=== PATIENT | male | born 1940 | race Caucasian/White ===

== ENCOUNTER 2023-03-19 08:02 | Day surgery (SDC) | payer MEDICARE, SELFPAY ==
--- NOTE | 2023-03-19 06:41 | W.ANESPRE ---
General Info Date of Service Date Performed: 03/19/23 Height: 5 ft 8 in Weight: 86.183 kg Body Mass Index (BMI): 28.8 Surgical Procedure: Operation Date: 03/19/23 09:55 Proposed Procedure Side Surgeon p Cataract Extraction with IOL Implant Left Mina Harrington MD Meds Allergies and Home Medications Allergies Allergy/AdvReac Type Severity Reaction Status Date / Time No Known Allergies Allergy Unverified 03/19/23 08:36 Home Medication Medication Instructions Recorded bisoprolol fumarate 5 mg tablet 5 mg PO HS 03/18/23 bupropion HCl 150 mg 24 hr tablet, 150 mg PO DAILY 03/18/23 extended release finasteride 5 mg tablet 5 mg PO DAILY 03/18/23 folic acid 1 mg tablet 1 mg PO DAILY 03/18/23 sertraline 100 mg tablet 100 mg PO BID 03/18/23 tamsulosin 0.4 mg capsule 0.8 mg PO DAILY 03/18/23 multivitamin 1 tab PO DAILY 03/19/23 Current Visit Medications: Current Medications Generic Name Dose Route Start Last Admin Trade Name Freq PRN Reason Stop Dose Admin Acetaminophen 1,000 mg 03/19/23 06:00 Acetaminophen 500 Mg Tab PO 04/18/23 05:59 Q4H PRN PRN Balanced Salt Solution 500 ml 03/19/23 06:00 Balanced Salt Soln.-Plus 500 Ml Bag OP 04/18/23 05:59 [facility] Miscellaneous Medication 0 ml 03/19/23 06:00 Prednisolone 1%, Moxifloxacin 0.5%, Nepafenac 0.1% 5ml Btl OS 04/18/23 05:59 DIRECTED [facility] Miscellaneous Medication 0 ml 03/19/23 06:00 Tropicam./Phenyleph. (1/2.5%) 5 Ml Btl OS 04/18/23 05:59 DIRECTED [facility] Tetracaine HCl 0 ml 03/19/23 06:00 Tetracaine 0.5% 4 Ml Btl OS 04/18/23 05:59 DIRECTED [facility] PFSH Active Problems Active Problems: Problem Status Onset Code Posterior subcapsular age-related cataract of left eye H25.042 Nuclear age-related cataract, left eye H25.12 Medical History Medical History Anemia Atrioventricular block, complete F/U with Dr. Ramos every 6 months BPH w/o urinary obs/LUTS Depression Essential hypertension HLD (hyperlipidemia) MACRINA (obstructive sleep apnea) Pacemaker Surgical History Surgical History (Updated 03/19/23 @ 08:35 by Mary Rocha RN) Hx of total knee arthroplasty LEFT Hx of total knee arthroplasty RIGHT Tobacco Smoking/Tobacco Use Status: Never Alcohol Alcohol Intake: never Substance Use Substance use type: does not use Vital Signs and Lab Results Vital Signs Most Recent Vital Signs in EMR: Temp Pulse Resp BP Pulse Ox 36.2 C L 62 16 153/93 H 96 03/19/23 08:19 03/19/23 08:19 03/19/23 08:19 03/19/23 08:19 03/19/23 08:19 Lab Results Blood Type / Crossmatch: No Data to Display Complete Blood Count: No Data to Display Complete Metabolic Panel: No Data to Display Liver Function Panel: No Data to Display Coagulation Panel: No Data to Display Cardiac Panel: No Data to Display Arterial Blood Gas: No Data to Display Venous Blood Gas: No Data to Display Pancreas Panel: No Data to Display Thyroid Panel: No Data to Display Infectious Disease: No Data to Display Blood Cultures: No Data to Display Toxicology Panel: No Data to Display Anesthesia Assessment and Plan Anesthesia History Personal History: No History of Anesthesia Complications Family History: No Family History of Anesthesia Complications Exercise Tolerance Exercise Tolerance: Metabolic Equivalents>4 Pertinent Negatives Pertinent Negatives: No Symptoms of GERD, No Major Pulmonary Symptoms or Complaints and No History of CVA/TIA Cardiac & Pulmonary Exam Cardiac Exam: Normal S1/S2 Heart Sounds Pulmonary Exam: Clear Bilateral Breath Sounds Implantable Cardiac Device Does patient have a Pacemaker or an ICD?: Yes Device 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
[2023-03-19 08:19] VITALS: BP 153/93; PULSE 62; RESP 16; TEMP 36.2; O2SAT 96
[2023-03-19] MEDS: Tropicam./Phenyleph. (1/2.5%) 5 ML BTL OS ×3 (08:27→08:48)
[2023-03-19 08:49] VITALS: BMI 28.8
[2023-03-19] MEDS: Balanced Salt Soln.-PLUS 500 ML BAG OP (09:21)
[2023-03-19] MEDS: Tetracaine 0.5% 4 ML BTL OS (09:22)
[2023-03-19] MEDS: Lidocaine 1% Pres-Free 5 ML VIAL (09:23)
[2023-03-19] MEDS: Phenylephrine/Lidocaine (15/10) MG/ML 1 ML VIAL (09:24)
[2023-03-19] MEDS: Duovisc Viscoelastic System EACH 1 EACH (09:24)
[2023-03-19] MEDS: Povidone-Iodine Ophth 30 ML BTL (09:25)
[2023-03-19 09:31] VITALS: BP 150/81; PULSE 60; RESP 18; TEMP 36.4; O2SAT 98
--- NOTE | 2023-03-19 09:31 | W.PM.DSUDISC ---
Date of service: 03/19/23 Time of Service: 09:32 Discharge Plan Disposition Patient Disposition: Home Discharge Details Attending Provider: Mina Harrington Primary Care Provider: Alissa Rossi Home Meds and New Rx's Prescriptions: No Action sertraline 100 mg tablet 100 mg PO BID Patient Comments: TAKE ONE TABLET BY MOUTH TWICE A DAY bisoprolol fumarate 5 mg tablet 5 mg PO HS Patient Comments: TAKE ONE TABLET BY MOUTH EVERY DAY tamsulosin 0.4 mg capsule 0.8 mg PO DAILY Patient Comments: TAKE TWO CAPSULES BY MOUTH EVERY DAY folic acid 1 mg tablet 1 mg PO DAILY Patient Comments: TAKE ONE TABLET BY MOUTH EVERY DAY finasteride 5 mg tablet 5 mg PO DAILY Patient Comments: TAKE ONE TABLET BY MOUTH EVERY DAY bupropion HCl 150 mg tablet extended release 24 hr 150 mg PO DAILY Patient Comments: TAKE ONE TABLET BY MOUTH EVERY DAY multivitamin [Multi-Vitamin] Tablet 1 tab PO DAILY Discharge Instructions Stand Alone Forms: Post-op Topical Cataract, Kenyon Perez ([facility]) Discharge Orders Discharge Orders: Discharge Order (Routine); Ordered 03/19/23 Ordered By: Mina Harrington DS: Diagnosis Discharge Diagnosis (1) Nuclear age-related cataract, left eye: Status: Resolved (2) Posterior subcapsular age-related cataract of left eye: Status: Resolved
--- NOTE | 2023-03-19 09:32 | ROE_ITS ---
Date of service: 03/19/23 Time of Service: 09:32 Operative Note Operative Note DATE OF PROCEDURE: 03/19/23 PRE-OP DIAGNOSIS: Nuclear/posterior subcapsular cataract, left eye POST-OP DIAGNOSIS: same PROCEDURE: Cataract extraction using phacoemulsification with intraocular lens implant, left eye SURGEON: Mina Harrington ANESTHESIA TYPE: Local By Surgeon and MAC Refer to Anesthesia Record PATHOLOGY: none sent COMPLICATIONS: None Patient was transported to: same day Patient's condition: stable Implants: Duncan and Duncan Tecnis Eyhance [id number] Indications: Progressive decreased vision due to cataract, left eye Procedure Description: CATARACT SURGERY OPERATIVE REPORT PREOPERATIVE DIAGNOSIS: 1. Nuclear/posterior subcapsular cataract, left eye POSTOPERATIVE DIAGNOSIS: Same OPERATION: 1. Cataract extraction using phacoemulsification with posterior chamber intraocular lens implant, left eye. IOL: IOL Dumpling Machine Operator/Model: Duncan & Duncan Tecnis Eyhance DIB00 IOL Power: + 24.0 diopters IOL Serial Number: [id number] Optic Diameter: 6.0 mm Haptic/Overall Diameter: 13.0 mm PHACO INFO: Dionte Convergent Dentalurion Vision System with OZil and Active Fluidics Cumulative Dispersed Energy (CDE): 11.51 seconds SURGEON: Mina Harrington MD, YESSI ANESTHESIA: Monitored A [facility] (MAC), with local sub-tenon's anesthetic infiltration COMPLICATIONS: None SPECIMENS: None INDICATIONS FOR PROCEDURE: The patient is an 82-year-old male with history of diminished visual acuity in his left eye secondary to the development of significant nuclear/posterior subcapsular cataract. He is significantly symptomatic that he desires cataract surgery and attempt to improve and maximize his vision. The option of cataract surgery was offered to the patient and he wished to proceed. See office notes for detailed information. PROCEDURE: The correct surgical eye was identified and marked as the left eye and the pupil was dilated in the preoperative area using mydriatics and cycloplegics. The dilated pupil size was 5.0 mm. The patient elected to proceed without oral sedation. The patient was brought to the operating room where cardiopulmonary monitoring was instituted and surgical time-out was performed, confirming the correct operative eye and IOL power. Topical anesthesia was administered and ophthalmic povidone-iodine 5% was instilled into the conjunctival fornices. The liudmila-ocular area was prepped with Betadine 10% solution and draped in the usual sterile fashion for intraocular surgery, including an aperture drape. A Tegaderm transparent film dressing was cut in half and used to cover the lashes and lid margins. Care was taken to sequester the lashes and lid margins under the Tegaderm dressing. A lid speculum was placed between the lids of the operative eye and the Dionte LuxOR Re valia operating microscope was maneuvered into position. Justus scissors were then used to make a conjunctival buttonhole approximately 6mm posterior to the limbus in the inferonasal quadrant. Blunt dissection was carried out to expose bare sclera, and a blunt-tipped sub-tenon?s anesthesia cannula was introduced and passed posteriorly along the globe where non- preserved plain lidocaine was injected into posterior sub-Tenon?s space. A sideport knife was used to make a paracentesis port. Intraocular phenylephrine/lidocaine was injected into the anterior chamber.. The anterior chamber was filled with viscoelastic. A keratome knife was used to construct a 2-plane near-clear corneal tunnel extending 2.0mm into clear cornea. A flap was raised on the anterior capsule and capsulorhexis forceps were used to complete a continuous curvilinear capsulorhexis of 5.0 mm. Balanced salt solution was then used to perform cortical cleaving hydrodissection and nuclear hydrodelineation until the lens could be freely rotated within the capsular bag. The lens nucleus was then disassembled and removed within the capsular bag and iris plane using phacoemulsification. Residual cortical material was removed using the irrigation/aspiration handpiece. The posterior capsule was carefully polished to remove as much residual lens epithelial cells as safely possible. The capsular bag was then inflated and the anterior chamber deepened with viscoelastic. The lens implant described above was inserted into the capsular bag using the Duncan and Duncan Simplicity pre-loaded injector. A Kuglen hook was used to dial the IOL into position. Residual viscoelastic was then removed first from posterior to the IOL, then from the anterior chamber using the I/A handpiece. The lens implant was noted to center nicely within the capsular bag. The incisions were stromally hydrated, and the anterior chamber was reformed using BSS. Then 0.5cc of moxifloxacin 1.0mg/ml were injected into the capsular bag and anterior chamber. The incisions were checked with a Weck spear and found to be secure. Several drops of ophthalmic povidone-iodine 5% were then applied to the eye followed by two drops of Imprimis combination prednisolone/moxifloxacin/nepafenac solution. The drapes were removed and a clear plastic protective eye shield was placed over the eye. The patient was then returned to Same Day Surgery in stable condition.
--- NOTE | 2023-03-19 09:50 | W.ANESPOSTOP ---
Postoperative Evaluation Date, Time and Location Date Performed: 03/19/23 Time Performed: 09:50 Patient Location: Day Surgery Unit Vital Signs Most Recent Imported Vital Signs: Most Recent Vital Signs Temp Pulse Resp BP Pulse Ox 36.4 C L 60 18 150/81 H 98 03/19/23 09:31 03/19/23 09:31 03/19/23 09:31 03/19/23 09:31 03/19/23 09:31 Pain Score Most Recent Pain Score: Most Recent Pain Score Pain Level 0 03/19/23 09:31 Assessment Mental Status: Awake (Alert & Oriented to Patient Baseline) Airway and Respiratory Function: Patent airway with normal (patient baseline) respiratory exam Cardiovascular Function: Hemodynamically Stable Hydration Status: Adequately Hydrated Nausea & Vomiting: No Nausea or Vomiting Pain: Pt. Denies Any Pain Peripheral Nerve Block: Other (Local by Dr. Harrington)
== END 2023-03-19 09:58 | disposition home or self-care (01) ==
PROVIDERS: PCP Internal Medicine; Visit Provider Ophthalmology
PROC: (CPT 66984; principal; 2023-03-19 09:45)
DX: H25.12 Age-related nuclear cataract, left eye (principal); H25.042 Posterior subcapsular polar age-related cataract, left eye; F32.A Depression, unspecified; I10 Essential (primary) hypertension
CPT/HCPCS: 66984; V2632

== ENCOUNTER 2023-04-02 07:10 | Day surgery (SDC) | payer MEDICARE, SELFPAY ==
[2023-04-02 07:48] VITALS: BP 147/88; PULSE 55; RESP 16; TEMP 36.3; O2SAT 97
[2023-04-02] MEDS: Tropicam./Phenyleph. (1/2.5%) 5 ML BTL OD ×2 (07:58→08:03)
--- NOTE | 2023-04-02 08:13 | ANES.PREOP_ITS ---
General Info Date of Service Date Performed: 04/02/23 Height: 5 ft 8 in Weight: 84.6 kg Body Mass Index (BMI): 28.3 Surgical Procedure: Operation Date: 04/02/23 09:10 Proposed Procedure Side Surgeon p Cataract Extraction with IOL Implant Right Mina Harrington MD Meds Allergies and Home Medications Allergies Allergy/AdvReac Type Severity Reaction Status Date / Time No Known Allergies Allergy Verified 04/02/23 07:44 Home Medication Medication Instructions Recorded bisoprolol fumarate 5 mg tablet 5 mg PO HS 03/18/23 bupropion HCl 150 mg 24 hr tablet, 150 mg PO DAILY 03/18/23 extended release finasteride 5 mg tablet 5 mg PO DAILY 03/18/23 folic acid 1 mg tablet 1 mg PO DAILY 03/18/23 sertraline 100 mg tablet 100 mg PO BID 03/18/23 tamsulosin 0.4 mg capsule 0.8 mg PO DAILY 03/18/23 multivitamin 1 tab PO DAILY 03/19/23 Current Visit Medications: Current Medications Generic Name Dose Route Start Last Admin Trade Name Freq PRN Reason Stop Dose Admin Acetaminophen 1,000 mg 04/02/23 06:00 Acetaminophen 500 Mg Tab PO 05/02/23 05:59 Q4H PRN PRN Balanced Salt Solution 500 ml 04/02/23 06:00 Balanced Salt Soln.-Plus 500 Ml Bag OP 05/02/23 05:59 DIRECTED [facility] Miscellaneous Medication 0 ml 04/02/23 06:00 Prednisolone 1%, Moxifloxacin 0.5%, Nepafenac 0.1% 5ml Btl OD 05/02/23 05:59 DIRECTED [facility] Miscellaneous Medication 0 ml 04/02/23 06:00 04/02/23 08:03 Tropicam./Phenyleph. (1/2.5%) 5 Ml Btl OD 05/02/23 05:59 1 drp DIRECTED [facility] Administration Tetracaine HCl 0 ml 04/02/23 06:00 Tetracaine 0.5% 4 Ml Btl OD 05/02/23 05:59 DIRECTED [facility] PFSH Active Problems Active Problems: Problem Status Onset Code Posterior subcapsular age-related cataract, right eye H25.041 Nuclear age-related cataract, right eye H25.11 Nuclear age-related cataract, left eye H25.12 Posterior subcapsular age-related cataract of left eye H25.042 Medical History Medical History Anemia Atrioventricular block, complete F/U with Dr. Ramos every 6 months BPH w/o urinary obs/LUTS Depression Essential hypertension HLD (hyperlipidemia) MACRINA (obstructive sleep apnea) Pacemaker Surgical History Surgical History Hx of total knee arthroplasty LEFT Hx of total knee arthroplasty RIGHT Tobacco Smoking/Tobacco Use Status: Never Alcohol Alcohol Intake: never Substance Use Substance use: Never Substance use type: does not use Vital Signs and Lab Results Vital Signs Most Recent Vital Signs in EMR: Most Recent Vital Signs Temp Pulse Resp BP Pulse Ox 36.3 C L 55 L 16 147/88 H 97 04/02/23 07:48 04/02/23 07:48 04/02/23 07:48 04/02/23 07:48 04/02/23 07:48 Lab Results Blood Type / Crossmatch: No Data to Display Complete Blood Count: No Data to Display Complete Metabolic Panel: No Data to Display Liver Function Panel: No Data to Display Coagulation Panel: No Data to Display Cardiac Panel: No Data to Display Arterial Blood Gas: No Data to Display Venous Blood Gas: No Data to Display Pancreas Panel: No Data to Display Thyroid Panel: No Data to Display Infectious Disease: No Data to Display Blood Cultures: No Data to Display Toxicology Panel: No Data to Display Anesthesia Assessment and Plan Anesthesia History Personal History: No History of Anesthesia Complications Family History: No Family History of Anesthesia Complications Exercise Tolerance Exercise Tolerance: Metabolic Equivalents>4 Pertinent Negatives Pertinent Negatives: No Symptoms of GERD and No Major Pulmonary Symptoms or Complaints Cardiac & Pulmonary Exam Cardiac Exam: Normal S1/S2 Heart Sounds Pulmonary Exam: Clear Bilateral Breath Sounds Implantable Cardiac Device Does patient have a Pacemaker or an ICD?: Yes Device 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[facility] Accolade MRI L311 Reason for Placement:: AV Block Date of Last Device Interrogation:: 01/26/23 Airway Exam Known Difficult Airway: No Mallampati Class: 2 Mouth Opening: Normal (> 3cm) Thyromental Distance: Greater than 3 cm Neck Range of Motion: Full ROM Neck Circumference: Normal Teeth Condition: Normal Dentition ASA Classification ASA Score: ASA 3 Emergency Case?: No NPO Status NPO Status: NPO Clears >2 hours, Solids >8 hours Anesthesia Plan Resuscitation Status: Full Code Anesthesia Technique: MAC Anesthesia Airway Planned: Natural Airway Monitors Used: Standard Monitors
[2023-04-02 08:44] VITALS: BMI 28.3
[2023-04-02] MEDS: Tetracaine 0.5% 4 ML BTL OD (08:47)
[2023-04-02] MEDS: Lidocaine 1% Pres-Free 5 ML VIAL (08:49)
[2023-04-02] MEDS: Phenylephrine/Lidocaine (15/10) MG/ML 1 ML VIAL (08:49)
[2023-04-02] MEDS: Balanced Salt Soln.-PLUS 500 ML BAG OP (08:49)
[2023-04-02] MEDS: Duovisc Viscoelastic System EACH 1 EACH (08:49)
[2023-04-02] MEDS: Povidone-Iodine Ophth 30 ML BTL (08:49)
[2023-04-02 09:15] VITALS: BP 141/86; PULSE 75; RESP 18; TEMP 36.4; O2SAT 97
--- NOTE | 2023-04-02 09:16 | W.PM.DSUDISC ---
Date of service: 04/02/23 Time of Service: 09:16 Discharge Plan Disposition Patient Disposition: Home Discharge Details Attending Provider: Mina Harrington Primary Care Provider: Alissa Rossi Home Meds and New Rx's Prescriptions: No Action sertraline 100 mg tablet 100 mg PO BID Patient Comments: TAKE ONE TABLET BY MOUTH TWICE A DAY bisoprolol fumarate 5 mg tablet 5 mg PO HS Patient Comments: TAKE ONE TABLET BY MOUTH EVERY DAY tamsulosin 0.4 mg capsule 0.8 mg PO DAILY Patient Comments: TAKE TWO CAPSULES BY MOUTH EVERY DAY folic acid 1 mg tablet 1 mg PO DAILY Patient Comments: TAKE ONE TABLET BY MOUTH EVERY DAY finasteride 5 mg tablet 5 mg PO DAILY Patient Comments: TAKE ONE TABLET BY MOUTH EVERY DAY bupropion HCl 150 mg tablet extended release 24 hr 150 mg PO DAILY Patient Comments: TAKE ONE TABLET BY MOUTH EVERY DAY multivitamin [Multi-Vitamin] Tablet 1 tab PO DAILY Discharge Instructions Stand Alone Forms: Post-op Topical Cataract, Kenyon Perez ([facility]) Discharge Orders Discharge Orders: Discharge Order (Routine); Ordered 04/02/23 Ordered By: Mina Harrington DS: Diagnosis Discharge Diagnosis (1) Posterior subcapsular age-related cataract, right eye: Status: Resolved (2) Nuclear age-related cataract, right eye: Status: Resolved
--- NOTE | 2023-04-02 09:17 | ROE_ITS ---
Date of service: 04/02/23 Time of Service: 09:17 Operative Note Operative Note DATE OF PROCEDURE: 04/02/23 PRE-OP DIAGNOSIS: Nuclear/posterior subcapsular cataract, right eye POST-OP DIAGNOSIS: same PROCEDURE: Cataract extraction using phacoemulsification with intraocular lens implant, right eye SURGEON: Mina Harrington ANESTHESIA TYPE: Local By Surgeon and MAC Refer to Anesthesia Record ESTIMATED BLOOD LOSS: 0 PATHOLOGY: none sent COMPLICATIONS: None Patient was transported to: same day Patient's condition: stable Implants: Duncan & Duncan Tecnis Eyhance [id number] Indications: Progressive visual loss due to cataract, right eye Procedure Description: CATARACT SURGERY OPERATIVE REPORT PREOPERATIVE DIAGNOSIS: 1. Nuclear/posterior subcapsular cataract, right eye POSTOPERATIVE DIAGNOSIS: Same OPERATION: 1. Cataract extraction using phacoemulsification with posterior chamber intraocular lens implant, right eye. IOL: IOL Monotype Keyboard Operator/Model: Duncan & Duncan Tecnis Eyhance DIB00 IOL Power: + 23.5 diopters IOL Serial Number: [id number] Optic Diameter: 6.0mm Haptic/Overall Diameter: 13.0mm PHACO INFO: Dionte Solar Junctionurion Vision System with OZil and Active Fluidics Cumulative Dispersed Energy (CDE): 9.38 seconds SURGEON: Mina Harrington MD, YESSI ANESTHESIA: Monitored [facility] ([facility]), with local sub-tenon's anesthetic infiltration COMPLICATIONS: None SPECIMENS: None INDICATIONS FOR PROCEDURE: The patient is an 82-year-old gentleman with history of diminished visual acuity in both eyes secondary to the development of bilateral cataract. He has already undergone cataract surgery in the left eye and is doing well postoperatively. He now presents for cataract surgery in the right eye. See office notes for detailed information. PROCEDURE: The correct surgical eye was identified and marked as the right eye and the pupil was dilated in the preoperative area using mydriatics and cycloplegics. The dilated pupil size was 5.5 mm. . The patient elected to proceed without oral sedation. The patient was brought to the operating room where cardiopulmonary monitoring was instituted and surgical time-out was performed, confirming the correct operative eye and IOL power. Topical anesthesia was administered and ophthalmic povidone-iodine 5% was instilled into the conjunctival fornices. The liudmila-ocular area was prepped with Betadine 10% solution and draped in the usual sterile fashion for intraocular surgery, including an aperture drape. A Tegaderm transparent film dressing was cut in half and used to cover the lashes and lid margins. Care was taken to sequester the lashes and lid margins under the Tegaderm dressing. A lid speculum was placed between the lids of the operative eye and the Dionte LuxOR Rev[place] operating microscope was maneuvered into position. Justus scissors were then used to make a conjunctival buttonhole approximately 6mm posterior to the limbus in the inferonasal quadrant. Blunt dissection was carried out to expose bare sclera, and a blunt-tipped sub-tenon?s anesthesia cannula was introduced and passed posteriorly along the globe where non- preserved plain lidocaine was injected into posterior sub-Tenon?s space. A sideport knife was used to make a paracentesis port. Intraocular phenylephrine/lidocaine was injected into the anterior chamber. The anterior chamber was filled with viscoelastic. A keratome knife was used to construct a 2-plane clear corneal tunnel extending 2.0mm into clear cornea. A flap was raised on the anterior capsule and capsulorhexis forceps were used to complete a continuous curvilinear capsulorhexis of 5.0 mm. Balanced salt solution was then used to perform cortical cleaving hydrodissection and nuclear hydrodelineation until the lens could be freely rotated within the capsular bag. The lens nucleus was then disassembled and removed within the capsular bag and iris plane using phacoemulsification. The iris was noted to be quite floppy, with pupil constricting to 5 mm during phacoemulsification. Residual cortical material was removed using the I/A handpiece. The posterior capsule was carefully polished to remove as much residual lens epithelial cells as safely possible. The capsular bag was then inflated and the anterior chamber deepened with cohesive viscoelastic. The lens implant described above was inserted into the capsular bag using the Duncan and Hema Simplicity pre-loaded injector. A Kuglen hook was used to dial the IOL into position. Residual viscoelastic was then removed first from posterior to the IOL, then from the anterior chamber using the I/A handpiece. The lens implant was noted to center nicely within the capsular bag. The incisions were stromally hydrated, and the anterior chamber was reformed using BSS. Then 0.5cc of moxifloxacin 1.0mg/ml were injected into the capsular bag and anterior chamber. The incisions were checked with a Weck spear and found to be secure. Several drops of ophthalmic povidone-iodine 5% were then applied to the eye followed by two drops of Imprimis combination prednisolone/moxifloxacin/nepafenac solution. The drapes were removed and a clear plastic protective eye shield was placed over the eye. The patient was then returned to Same Day Surgery in stable condition.
--- NOTE | 2023-04-02 10:26 | W.ANESPOSTOP ---
Postoperative Evaluation Date, Time and Location Date Performed: 04/02/23 Time Performed: 09:16 Patient Location: Day Surgery Unit Vital Signs Most Recent Imported Vital Signs: Most Recent Vital Signs Temp Pulse Resp BP Pulse Ox 36.4 C L 75 18 141/86 H 97 04/02/23 09:15 04/02/23 09:15 04/02/23 09:15 04/02/23 09:15 04/02/23 09:15 Pain Score Most Recent Pain Score: Most Recent Pain Score Pain Level 0 04/02/23 09:15 Assessment Mental Status: Awake (Alert & Oriented to Patient Baseline) Airway and Respiratory Function: Patent airway with normal (patient baseline) respiratory exam Cardiovascular Function: Hemodynamically Stable Hydration Status: Adequately Hydrated Nausea & Vomiting: No Nausea or Vomiting Pain: Pt. Denies Any Pain Peripheral Nerve Block: Patient did not receive a nerve block
== END 2023-04-02 09:39 | disposition home or self-care (01) ==
LOC: SUR 07:10
PROVIDERS: PCP Internal Medicine; Visit Provider Ophthalmology
PROC: (CPT 66984; principal; 2023-04-02 09:00)
DX: H25.041 Posterior subcapsular polar age-related cataract, right eye (principal); H25.11 Age-related nuclear cataract, right eye; I10 Essential (primary) hypertension
CPT/HCPCS: 66984; V2632